=== PATIENT | female | born 1990 | race Caucasian/White ===

== ENCOUNTER 2016-09-14 22:18 | Emergency (ER) | payer SELFPAY ==
[~2016-09-14] VITALS: Wt 57.5 kg
[~2016-09-14 22:18] MED LIST: [UNRECOGNIZED DRUG - OTHER]
[2016-09-15] MEDS ORDERED: ONDANSETRON (ODT) 4 MG TAB ODT STA (02:19)
--- NOTE | 2016-09-15 02:33 | ERD ---
ER Documentation Chief Complaint Date/Time DATE: 09/15/16 TIME: 02:30 Chief Complaint Headache with N/V and feeling weak HPI 26-year-old female presents to emergency department for complaints of headache nausea vomiting started 3 days ago. Patient is complaint of headache, throbbing pain. 6/10 scale, comminuted with nausea and vomiting. Patient is complaining of light sensitivity is sent. Patient denies any head injury. Patient denies any abdominal pain, denies any blood in the vomit. Patient denies any diarrhea. Patient denies any fever or chills. ROS All systems reviewed and are negative except as per history of present illness. Medications Home Meds Reported Medications [advil,tylenol] No Conflict Check 06/01/11 Allergies Allergies: Coded Allergies: No Known Allergy (Unverified , 09/14/16) PMhx/Soc Medical and Surgical Hx: pt denies Medical Hx, pt denies Surgical Hx History of Surgery: No Anesthesia Reaction: No Hx Neurological Disorder: No Hx Respiratory Disorders: No Hx Cardiac Disorders: No Hx Psychiatric Problems: No Hx Miscellaneous Medical Probl: No Hx Alcohol Use: No Hx Substance Use: No Hx Tobacco Use: No Smoking Status: Never smoker FmHx Family History: No coronary disease, No diabetes, No other Physical Exam Vitals Vital Signs Date Time Temp Pulse Resp B/P Pulse Ox O2 Delivery O2 Flow Rate FiO2 09/14/16 22:27 97.5 72 20 121/59 100 Physical Exam GENERAL: The patient is well developed and appropriate for usual state of health, in no apparent distress. CHEST: Clear to auscultation bilaterally. There are no rales, wheezes or rhonchi. HEART: Regular rate and rhythm. No murmurs, clicks, rubs or gallops. No S3 or S4. ABDOMEN: Soft, nontender and nondistended. Good bowel sounds. No rebound or guarding. No gross peritonitis. No gross organomegaly or masses. No Engel sign or McBurney point tenderness. BACK: No midline or flank tenderness. EXTREMITIES: Equal pulses bilaterally. There is no peripheral clubbing, cyanosis or edema. No focal swelling or erythema. Full range of motion. Grossly neurovascularly intact. NEURO: Alert and oriented. Cranial nerves 2-12 intact. Motor strength in all 4 extremities with 5/5 strength. Sensation grossly intact. Normal speech and gait. Negative Romberg sign. Negative pronator drift SKIN: There is no apparent rash or petechia. The skin is warm and dry. HEMATOLOGIC AND LYMPHATIC: There is no evidence of excessive bruising or lymphedema. No gross cervical, axillary, or inguinal lymphadenopathy. Results 24 hrs Current Medications Medications (Trade) Dose Ordered Sig/Alma Route PRN Reason Start Time Stop Time Status Last Admin Dose Admin Ondansetron HCl (Zofran Odt) 4 mg ONCE STAT ODT 09/15/16 02:19 09/15/16 02:21 DC Patient was given Zofran here in the emergency department. After treatment, patient was able to tolerate po fluids here in the emergency department without any vomiting. There is no signs and symptoms of dehydration. PROCEDURE: CT BRAIN WITHOUT CONTRAST CLINICAL INDICATION: 26-year-old female with headaches. TECHNIQUE: The study was performed utilizing a [employer] VCT 64-slice CT scanner. Direct axial sections were obtained from the foramen magnum to the vertex without the use of intravenous contrast material. Sagittal and coronal reformations were obtained. One or more the following dose reduction techniques were utilized: automated exposure control, adjustment of the mA and/or kV according to patient's size or use of iterative reconstruction technique. The images were viewed on a PACS workstation. CTD/vol = 44.5 mGy; Total Exam DLP = 120.2 mGy-cm. COMPARISON: The patient's prior CT scan of the brain from June 01, 2011 is not online for direct comparison however the dictation was utilized. FINDINGS: The ventricles have a normal size, shape and position. There is no evidence for mass effect or midline shift. There is a left parietal parasagittal ovoid calcific density measuring approximately 2 x 2 mm on axial image 2-16 which was described previously and most likely is from prior cysticercosis infection. There is no evidence for acute intra or extra-axial blood. The bony calvarium is intact. The partially visualized paranasal sinuses and mastoid air cells are without significant abnormal soft tissue. IMPRESSION: Small left parietal 2 mm parasagittal calcific density most likely from prior cysticercosis infection previously described on the patient's prior study from June 01, 2011. .Tony Tirado MD, Date Time Electronically viewed and signed by .Tony Tirado MD, on 09/15/2016 02:55 .M/ CC: ANGEL CA NP Procedures/MDM Medical Decision Making: Patient symptoms are consistent with migraine headache , possible tension headache. There is low suspicion for neurological emergencies at this time since patients neurologic exam is normal. Patient did not have any altered level consciousness, vomiting, changes in balance or memory and did not have any head injury. Patients CT scan of the head does not show any neurological emergencies at this time. Rx: Fioricet with codeine, Zofran Dispostion: Home. Stable Departure Diagnosis: Primary Impression: Headache Headache type: unspecified Headache chronicity pattern: acute headache Intractability: not intractable Qualified Code: R51 - Acute nonintractable headache, unspecified headache type Condition: Stable Patient Instructions: Self-Care for Headaches ANGEL CA NP Sep 15, 2016 02:33
--- NOTE | 2016-09-15 02:56 | RADRPT ---
PROCEDURE: CT BRAIN WITHOUT CONTRAST CLINICAL INDICATION: 26-year-old female with headaches. TECHNIQUE: The study was performed utilizing a [employer] VCT 64-slice CT scanner. Direct axia l sections were obtained from the foramen magnum to the vertex without the use of intravenous contra st material. Sagittal and coronal reformations were obtained. One or more the following dose reduct ion techniques were utilized: automated exposure control, adjustment of the mA and/or kV according t o patient's size or use of iterative reconstruction technique. The images were viewed on a PACS Workface. CTD/vol = 44.5 mGy; Total Exam DLP = 120.2 mGy-cm. COMPARISON: The patient's prior CT scan of the brain from June 01, 2011 is not online for direct c omparison however the dictation was utilized. FINDINGS: The ventricles have a normal size, shape and position. There is no evidence for mass effect or midl ine shift. There is a left parietal parasagittal ovoid calcific density measuring approximately 2 x 2 mm on axial image 2-16 which was described previously and most likely is from prior cysticercosis infection. There is no evidence for acute intra or extra-axial blood. The bony calvarium is intact . The partially visualized paranasal sinuses and mastoid air cells are without significant abnormal soft tissue. IMPRESSION: Small left parietal 2 mm parasagittal calcific density most likely from prior cysticercosis infectio n previously described on the patient's prior study from June 01, 2011. .Tony Tirado MD, MD Date Time Electronically viewed and signed by .Tony Tirado MD, on 09/15/2016 02:55 .Farhad/
[2016-09-15] MEDS ORDERED: BUTA1CAP39 PO (03:07)
[2016-09-15] MEDS ORDERED: ONDA4TAB14 PO (03:07)
== END 2016-09-15 03:31 | disposition home or self-care (01) ==
LOC: FTE 22:18
DX: R51 Headache (principal); R11.2 Nausea with vomiting, unspecified
CPT/HCPCS: 70450

== ENCOUNTER 2017-02-15 19:34 | Emergency (ER) | payer MEDICAID, OTHER ==
[~2017-02-15] VITALS: Ht 157.5 cm; Wt 57.2 kg
[~2017-02-15 19:34] MED LIST changes: +BUTA1CAP39 PO; +ONDA4TAB14 PO
[2017-02-15 19:37] VITALS: Ht 157.5 cm; Wt 57.2 kg
[2017-02-15] MEDS ORDERED: KETOROLAC 60 MG INJ IM STA (20:53)
[2017-02-15] MEDS ORDERED: HYDR-906 PO (21:07)
[2017-02-15] MEDS ORDERED: CYCL-319 PO (21:07)
[2017-02-15] MEDS ORDERED: IBUP-1542 PO (21:07)
--- NOTE | 2017-02-15 21:13 | ERD ---
ER Documentation Chief Complaint Chief Complaint right arm pain x 4 days, denies injury HPI 26-year-old female presents here to emergency department for complaints of right shoulder pain radiating to the right arm started 4 days ago. Patient was lifting weights and working out, may have started afterwards. Patient denies any direct trauma in affected area. Patient described the pain as throbbing pain, succession scale, as was upon movement. Patient did not take any medications to help with symptoms. Patient denies any deformity. Patient denies any numbness or tingling. Patient did not take any medication for pain. ROS All systems reviewed and are negative except as per history of present illness. Medications Home Meds Active Scripts Cyclobenzaprine Hcl* (Cyclobenzaprine Hcl*) 10 Mg Tablet, 10 MG PO TID, #15 TAB Prov:ANGEL CA NP 02/15/17 Hydrocodone/Acetaminophen ([place] 5-325 Tablet) 1 Each Tablet, 1 TAB PO Q6H Y for SEVERE PAIN LEVEL 7-10, #20 TAB Prov:ANGEL CA NP 02/15/17 Ibuprofen* (Motrin*) 600 Mg Tab, 600 MG PO Q6H Y for PAIN AND OR ELEVATED TEMP, #30 TAB Prov:ANGEL CA NP 02/15/17 Ondansetron (Ondansetron Odt) 4 Mg Tab.rapdis, 4 MG PO Q8 Y for NAUSEA AND/OR VOMITING, #30 TAB Prov:ANGEL CA NP 09/15/16 Kkqobqdizlzqz-Ceinxyatow-Qyocwuel-Codeine* (Fioricet w/ Codeine*) [id number] 30MG Capsule, 1 CAP PO Q6H Y for PAIN LEVEL 1-5, #20 CAP Prov:ANGEL CA NP 09/15/16 Reported Medications [advil,tylenol] No Conflict Check 06/01/11 Allergies Allergies: Coded Allergies: No Known Allergy (Unverified , 09/14/16) PMhx/Soc Medical and Surgical Hx: pt denies Medical Hx, pt denies Surgical Hx History of Surgery: No Anesthesia Reaction: No Hx Neurological Disorder: No Hx Respiratory Disorders: No Hx Cardiac Disorders: No Hx Psychiatric Problems: No Hx Miscellaneous Medical Probl: No Hx Alcohol Use: No Hx Substance Use: No Hx Tobacco Use: No FmHx Family History: No coronary disease, No diabetes, No other Physical Exam Vitals Vital Signs Date Time Temp Pulse Resp B/P Pulse Ox O2 Delivery O2 Flow Rate FiO2 02/15/17 19:37 98.7 71 20 106/63 99 Physical Exam GENERAL: The patient is well developed and appropriate for usual state of health, in no apparent distress. CHEST: Clear to auscultation bilaterally. There are no rales, wheezes or rhonchi. HEART: Regular rate and rhythm. No murmurs, clicks, rubs or gallops. No S3 or S4. ABDOMEN: Soft, nontender and nondistended. Good bowel sounds. No rebound or guarding. No gross peritonitis. No gross organomegaly or masses. No Engel sign or McBurney point tenderness. BACK: No midline or flank tenderness. EXTREMITIES: Able to do full range of motion of the right shoulder without any restriction, no deformity noted, no redness or swelling noted. Able to do full range of motion equal pulses bilaterally. There is no peripheral clubbing, cyanosis or edema. No focal swelling or erythema. Full range of motion. Grossly neurovascularly intact. NEURO: Alert and oriented. Cranial nerves 2-12 intact. Motor strength in all 4 extremities with 5/5 strength. Sensation grossly intact. Normal speech and gait. SKIN: There is no apparent rash or petechia. The skin is warm and dry. HEMATOLOGIC AND LYMPHATIC: There is no evidence of excessive bruising or lymphedema. No gross cervical, axillary, or inguinal lymphadenopathy. Results 24 hrs Current Medications Medications (Trade) Dose Ordered Sig/Alma Route PRN Reason Start Time Stop Time Status Last Admin Dose Admin Ketorolac Tromethamine (Toradol) 60 mg ONCE STAT IM 02/15/17 20:53 02/15/17 20:54 DC Patient was given medication for pain here in emergency department, after treatment, patient verbalized feeling much better. Patient's pain is improved. Procedures/MDM Medical Decision Making: Patient's pain is most likely consistent with a right shoulder strain. There is no suspicion for neurovascular compromise. Patient has intact sensation and circulation of the affected extremity. There is low suspicion for septic arthritis. Patient does not have any fever. Radiology exams of the affected area does not show any fracture or dislocation. Disposition: Home. Patient is given prescription for ibuprofen for pain. Patient was advised to elevate the affected area and apply ice on affected area. Patient was advised that if symptoms are worse, numbness, tingling, high fever, unable to move joint, worsening symptoms, to return to emergency department immediately. Otherwise, patient is advised to follow up with the primary care doctor in 5-7 days for reevaluation of symptoms. Disclaimer: Inadvertent spelling and grammatical errors are likely due to EHR/ dictation software use and do not reflect on the overall quality of patient care. Also, please note that the electronic time recorded on this note does not necessarily reflect the actual time of the patient encounter. Departure Diagnosis: Primary Impression: Shoulder strain Encounter type: initial encounter Laterality: right Qualified Code: S46.911A - Strain of right shoulder, initial encounter Condition: Stable Patient Instructions: Shoulder Sprain ANGEL CA NP Feb 15, 2017 21:13
[2017-02-15 22:02] VITALS: PULSE 88; RESP 20; TEMP 98.2
== END 2017-02-15 21:20 | disposition home or self-care (01) ==
LOC: FTE 19:34
DX: S46.911A Strain of unspecified muscle, fascia and tendon at shoulder and upper arm level, right arm, initial encounter (principal); X50.0XXA Overexertion from strenuous movement or load, initial encounter; Y92.89 Other specified places as the place of occurrence of the external cause
CPT/HCPCS: J1885; Z7502; 99284

== ENCOUNTER 2017-12-04 18:50 | Emergency (ER) | END 2017-12-04 22:46 | disposition home or self-care (01) ==

== ENCOUNTER 2017-12-18 20:29 | Emergency (ER) | END 2017-12-19 01:11 | disposition home or self-care (01) ==

== ENCOUNTER 2018-04-24 18:27 | Emergency (ER) | payer MEDICAID, OTHER ==
[~2018-04-24] VITALS: Ht 160 cm; Wt 58.0 kg
[~2018-04-24 18:27] MED LIST changes: +CYCL10TA7 PO; +FIORICET PO; +HYDR-4011 PO; +IBUP-1542 PO; +IBUP-1561 PO; +METO10TA92 PO; +NAPR-985 PO
[2018-04-24 18:59] VITALS: Ht 160 cm; Wt 58.0 kg
--- NOTE | 2018-04-24 22:13 | ERD ---
ER Documentation Chief Complaint Chief Complaint JARVIS 12/04 X ONE MONTH HPI 27-year-old female, with history of migraines presents the emergency department, complaining of 1 month with persistent headache. Global, tight, /10. She denies blurred vision, no nausea, no vomiting, no distal weakness, numbness or tingling. Medications taking: Ibuprofen without improvement of the symptoms. ROS All systems reviewed and are negative except as per history of present illness. Medications Home Meds Active Scripts Metoclopramide* (Reglan*) 10 Mg Tablet, 10 MG PO Q6 PRN for NAUSEA AND/OR VOMITING, #10 TAB Prov:EVERARDO CARRASCO MD 04/24/18 Acetamin/Butalbital/Caffeine* (Fioricet*) [id number] Tab, 1 TAB PO Q6H PRN for PAIN, #30 TAB Prov:EVERARDO CARRASCO MD 04/24/18 Ibuprofen* (Motrin*) 400 Mg Tab, 400 MG PO Q6, #30 TAB Prov:ALESHA ACEVEDO PA-C 12/19/17 Metoclopramide* (Reglan*) 10 Mg Tablet, 10 MG PO Q6 PRN for NAUSEA AND/OR VOMITING, #30 TAB Prov:JODY AGUILAR 12/04/17 Acetamin/Butalbital/Caffeine* (Fioricet*) [id number] Tab, 1 TAB PO Q6H PRN for SEVERE PAIN LEVEL 7-10, #30 TAB Prov:JODY AGUILAR 12/04/17 Naproxen* (Naprosyn*) 500 Mg Tablet, 500 MG PO BID PRN for PAIN AND/OR INFLAMMATION, #30 TAB Prov:JODY AGUILAR 12/04/17 Cyclobenzaprine Hcl* (Cyclobenzaprine Hcl*) 10 Mg Tablet, 10 MG PO TID, #15 TAB Prov:ANGEL CA NP 02/15/17 Hydrocodone/Acetaminophen ([place] 5-325 Tablet) 1 Each Tablet, 1 TAB PO Q6H PRN for SEVERE PAIN LEVEL 7-10, #20 TAB Prov:ANGEL CA NP 02/15/17 Ibuprofen* (Motrin*) 600 Mg Tab, 600 MG PO Q6H PRN for PAIN AND OR ELEVATED T EMP, #30 TAB Prov:ANGEL CA NP 02/15/17 Ondansetron (Ondansetron Odt) 4 Mg Tab.rapdis, 4 MG PO Q8 PRN for NAUSEA AND/OR VOMITING, #30 TAB Prov:ANGEL CA INSURANCE PROCESSOR 09/15/16 Uqavwdzeelxpd-Wmxtevhugj-Lfedbkud-Codeine* (Fioricet w/ Codeine*) [id number] Capsule, 1 CAP PO Q6H PRN for PAIN LEVEL 1-5, #20 CAP Prov:ANGEL CA INSURANCE PROCESSOR 09/15/16 Reported Medications [advil,tylenol] No Conflict Check 06/01/11 Allergies Allergies: Coded Allergies: No Known Allergy (Unverified , 12/04/17) PMhx/Soc History of Surgery: No Anesthesia Reaction: No Hx Neurological Disorder: No Hx Respiratory Disorders: No Hx Cardiac Disorders: No Hx Psychiatric Problems: Yes (anxiety) Hx Miscellaneous Medical Probl: No Hx Alcohol Use: No Hx Substance Use: No Hx Tobacco Use: No Smoking Status: Never smoker FmHx Family History: diabetes, coronary disease Physical Exam Vitals Vital Signs Date Temp Pulse Resp B/P (MAP) Pulse Ox O2 O2 Flow FiO2 Time Delivery Rate 04/24/18 88 16 113/58 99 18:59 (76) Physical Exam Const: No acute distress Head: Atraumatic Eyes: Normal Conjunctiva ENT: Normal External Ears, Nose and Mouth. Neck: Full range of motion. No meningismus. Resp: Clear to auscultation bilaterally Cardio: Regular rate and rhythm, no murmurs Abd: Soft, non tender, non distended. Normal bowel sounds Skin: No petechiae or rashes Back: No midline or flank tenderness Ext: No cyanosis, or edema Neur: Awake and alert Psych: Normal Mood and Affect Results 24 hrs Current Medications Medications Dose Sig/Alma Start Time Status Last (Trade) Ordered Route PRN Stop Time Admin Dose Reason Admin 1 tab ONCE ONCE 04/24/18 DC Acetaminophen PO 22:30 / 04/24/18 22:31 Butalbital/ Caffeine (Fioricet) Ondansetron 4 mg ONCE STAT 1/29/19 DC HCl (Zofran ODT 22:27 Odt) 04/24/18 22:31 Procedures/MDM Vital signs stable, Physical exam unremarkable, neurovascular exam intact. Differential diagnosis include but not limited to: Classical migraine, sinusitis, visual corrective problems, side effects of medications, dehydration, electrolyte imbalance, endocrine/autoimmune medical condition, stress, anxiety, tension headache. Low suspicion for meningitis, [employer] tumor, cerebrovascular event. Physical examination and clinical presentation consistent most likely with migraine headache. During the ED course the patient remained stable, no new complaints. Results and clinical impression discussed with patient who agrees with management. The patient is stable to be treated outpatient and will be discharged home, some side effects of prescribed medications (headache, rash, nausea, vomiting, diarrhea, drowsiness, habituation, bleeding, hypertension, interactions with other medications) were reviewed. Follow up with the primary care provider in the next 48h has been recommended. If symptoms persist, worsen or new symptoms develop, then patient should return to the ED immediately. Instructions explained and given directly by me to the patient with acknowledgment and demonstrated understanding. Disclaimer: Inadvertent spelling and grammatical errors are likely due to EHR/dictation software use and do not reflect on the overall quality of patient care. Also, please note that the electronic time recorded on this note does not necessarily reflect the actual time of the patient encounter. Departure Diagnosis: Primary Impression: Migraine Condition: Stable Additional Instructions: Thank you very much for allowing us to participate in your care. Your health and safety is our top priority at [facility]. Call your primary care doctor TOMORROW for an appointment during the next 2-4 days and bring all the information and medications prescribed. Have prescriptions filled and follow precisely the directions on the label. If the symptoms get worse and your provider is unavailable, return to the Emergency Department immediately. EVERARDO CARRASCO MD Apr 24, 2018 22:13
[2018-04-24] MEDS ORDERED: ONDANSETRON (ODT) 4 MG TAB ODT STA (22:27)
[2018-04-24] MEDS ORDERED: ACET/BUTAL/CAFF TAB PO ONE (22:30)
[2018-04-24] MEDS ORDERED: METO10TA92 PO (22:35)
[2018-04-24] MEDS ORDERED: FIORICET PO (22:35)
[2018-04-24 22:57] VITALS: BP 112/70; PULSE 80; RESP 18
== END 2018-04-24 22:59 | disposition home or self-care (01) ==
LOC: FTE 18:27
DX: G43.909 Migraine, unspecified, not intractable, without status migrainosus (principal)
CPT/HCPCS: Z7502; Z7610; 99283

== ENCOUNTER 2018-10-27 20:41 | Emergency (ER) | payer SELFPAY ==
[~2018-10-27] VITALS: Ht 160 cm; Wt 59.4 kg
[~2018-10-27 20:41] MED LIST changes: +BUTA1CAP38 PO; +MELO7.5T38 PO
[2018-10-27 20:42] VITALS: Ht 160 cm; Wt 59.4 kg
[2018-10-27] MEDS ORDERED: KETOROLAC 60 MG INJ IM STA (21:52)
--- NOTE | 2018-10-27 21:59 | ERD ---
ER Documentation Chief Complaint Chief Complaint JARVIS X 2 WEEKS. HPI Patient is a 28-year-old female with past medical history of anxiety and migraine presenting to the clinic for migrainous headache X 2 weeks. Patient reports headache throughout the entirety of her head that comes and goes. Rates her pain 8.5 out of 10 mid to taking OTC ibuprofen without resolution of symptoms. Patient admits to mild aura and wanting to go to a dark room. Patient denies nausea, emesis, dizziness. Patient reports that her headache affects her daily life activities but is able to go to work. Patient reports [place] moves her migraines in the past. ROS All systems reviewed and are negative except as per history of present illness. Medications Home Meds Active Scripts Metoclopramide* (Reglan*) 10 Mg Tablet, 10 MG PO Q6 PRN for NAUSEA AND/OR VOMITING, #10 TAB Prov:EVERARDO CARRASCO MD 04/24/18 Acetamin/Butalbital/Caffeine* (Fioricet*) [id number] Tab, 1 TAB PO Q6H PRN for PAIN, #30 TAB Prov:EEVRARDO CARRASCO MD 04/24/18 Ibuprofen* (Motrin*) 400 Mg Tab, 400 MG PO Q6, #30 TAB Prov:ALESHA ACEVEDO PA-C 12/19/17 Metoclopramide* (Reglan*) 10 Mg Tablet, 10 MG PO Q6 PRN for NAUSEA AND/OR VOMITING, #30 TAB Prov:JODY AGUILAR 12/04/17 Acetamin/Butalbital/Caffeine* (Fioricet*) [id number] Tab, 1 TAB PO Q6H PRN for SEVERE PAIN LEVEL 7-10, #30 TAB Prov:JODY AGUILAR 12/04/17 Naproxen* (Naprosyn*) 500 Mg Tablet, 500 MG PO BID PRN for PAIN AND/OR INFLAMMATION, #30 TAB Prov:JODY AGUILAR 12/04/17 Cyclobenzaprine Hcl* (Cyclobenzaprine Hcl*) 10 Mg Tablet, 10 MG PO TID, #15 TAB Prov:ANGEL CA NP 02/15/17 Hydrocodone/Acetaminophen ([place] 5-325 Tablet) 1 Each Tablet, 1 TAB PO Q6H PRN for SEVERE PAIN LEVEL 7-10, #20 TAB Prov:ANGEL CA NP 02/15/17 Ibuprofen* (Motrin*) 600 Mg Tab, 600 MG PO Q6H PRN for PAIN AND OR ELEVATED TEMP , #30 TAB Prov:ANGEL CA TIMBER KILLER 02/15/17 Ondansetron (Ondansetron Odt) 4 Mg Tab.rapdis, 4 MG PO Q8 PRN for NAUSEA AND/OR VOMITING, #30 TAB Prov:ANGEL CA TIMBER KILLER 09/15/16 Bvdtrrahguvlv-Dypkiqopvk-Nahtxwux-Codeine* (Fioricet w/ Codeine*) [id number] Capsule, 1 CAP PO Q6H PRN for PAIN LEVEL 1-5, #20 CAP Prov:ANGEL CA TIMBER KILLER 09/15/16 Reported Medications [advil,tylenol] No Conflict Check 06/01/11 Allergies Allergies: Coded Allergies: No Known Allergy (Unverified , 12/04/17) PMhx/Soc Medical and Surgical Hx: pt denies Surgical Hx History of Surgery: No Anesthesia Reaction: No Hx Neurological Disorder: No Hx Respiratory Disorders: No Hx Cardiac Disorders: No Hx Psychiatric Problems: Yes (anxiety) Hx Miscellaneous Medical Probl: No Hx Alcohol Use: No Hx Substance Use: No Hx Tobacco Use: No Smoking Status: Never smoker FmHx Family History: No diabetes, No coronary disease, No other Physical Exam Vitals Vital Signs Date Temp Pulse Resp B/P (MAP) Pulse Ox O2 O2 Flow FiO2 Time Delivery Rate 10/27/18 98.6 75 20 107/71 100 20:42 (83) Physical Exam Const: No acute distress. Patient sitting comfortably on exam bed in any distress. Head: Atraumatic. Negative sinus tenderness. Eyes: Normal Conjunctiva. PERRLA. No nystagmus. Resp: Clear to auscultation bilaterally Cardio: Regular rate and rhythm, no murmurs Neur: Awake and alert. CNII-XII intact. 5 out of 5 upper and lower extremity strength. Psych: Normal Mood and Affect Procedures/MDM Patient was seen and evaluated for possible migrainous headache without complications. Patient shows no signs of neurological deficits. I have low suspicion for hemorrhage. Toradol 60 mg administered in ED. Patient was advised the provider will not give [place]. She is stable ready for discharge. Follow-up with PCP. Patient will be discharged with meloxicam. Departure Diagnosis: Primary Impression: Migraine Migraine type: unspecified Status migrainosus presence: without status migrainosus Intractability: intractable Qualified Codes: G43.919 - Migraine, unspecified, intractable, without status migrainosus Condition: Stable Patient Instructions: Headache, Migraine (Classical) Referrals: [facility] Additional Instructions: Patient advised to return to the ED immediately for new or worsening symptoms. Patient advised to follow up with primary care provider in the next 24-48 hours. Patient verbalized understanding and agrees with treatment plan and course of action. If patient has no primary care they may follow up with [facility] [address] [place] [id number] or [facility] [address] [place] [address] or [facility] [address] [place] [address] ANTHONY BALLESTEROS PA-C Oct 27, 2018 21:59
[2018-10-27] MEDS ORDERED: MELOXICAM 15 MG TAB PO ONE (23:00)
[2018-10-27 23:24] VITALS: BP 108/60; PULSE 58; RESP 18
== END 2018-10-27 23:25 | disposition home or self-care (01) ==
LOC: FTE 20:41
DX: G43.919 Migraine, unspecified, intractable, without status migrainosus (principal)
CPT/HCPCS: 81025; 99283; J1885

== ENCOUNTER 2018-11-03 22:15 | Emergency (ER) | payer SELFPAY ==
[~2018-11-03] VITALS: Ht 160 cm; Wt 59.9 kg
[2018-11-03 22:29] VITALS: Ht 160 cm; Wt 59.9 kg
[2018-11-03] MEDS ORDERED: KETOROLAC 30 MG INJ IM STA (23:23)
--- NOTE | 2018-11-03 23:33 | ERD ---
ER Documentation Chief Complaint Chief Complaint headache x 3-4 wks; hx of migraine HPI Patient is a 28-year-old female, past medical history of migraine headaches in the ER for concerns of a intermittent headaches for the last 3 to 4 weeks. Patient states she was seen here 1 week ago. She states she was given pre scription for meloxicam however it is not helping with her headaches. Patient states her headache comes and goes. Headache is not consistent. Patient denies any sudden worsening pain. Patient reports associated nausea however denies any vomiting, acute confusion, excessive sleepiness, photophobia, phonophobia, neck pain, neck stiffness, fevers or chills. Patient states current headache feels the same as previous headaches. Patient states her last menstrual period was 2 weeks ago. ROS All systems reviewed and are negative except as per history of present illness. Medications Home Meds Active Scripts Djphhwwhwa-Dcspyudelztap-Myywjdvz* (Fioricet*) 50-300-40 Mg Capsule, 1 CAP PO Q6H PRN for head, #10 CAP Prov:EZEKIEL ZIMMERMAN PA-C 11/03/18 Meloxicam* (Meloxicam*) 7.5 Mg Tablet, 7.5 MG PO DAILY, #30 TAB Prov:ANTHONY BALLESTEROS PA-C 10/27/18 Metoclopramide* (Reglan*) 10 Mg Tablet, 10 MG PO Q6 PRN for NAUSEA AND/OR VOMITI NG, #10 TAB Prov:EVERARDO CARRASCO MD 04/24/18 Acetamin/Butalbital/Caffeine* (Fioricet*) [id number] Tab, 1 TAB PO Q6H PRN for PAIN, #30 TAB Prov:EVERARDO CARRASCO MD 04/24/18 Ibuprofen* (Motrin*) 400 Mg Tab, 400 MG PO Q6, #30 TAB Prov:ALESHA ACEVEDO PA-C 12/19/17 Metoclopramide* (Reglan*) 10 Mg Tablet, 10 MG PO Q6 PRN for NAUSEA AND/OR VOMITING, #30 TAB Prov:JODY AGUILAR 12/04/17 Acetamin/Butalbital/Caffeine* (Fioricet*) [id number] Tab, 1 TAB PO Q6H PRN for SEVERE PAIN LEVEL 7-10, #30 TAB Prov:JODY AGUILAR 12/04/17 Naproxen* (Naprosyn*) 500 Mg Tablet, 500 MG PO BID PRN for PAIN AND/OR INFLAMMATION, #30 TAB Prov:JODY AGUILAR 12/04/17 Cyclobenzaprine Hcl* (Cyclobenzaprine Hcl*) 10 Mg Tablet, 10 MG PO TID, #15 TAB Prov:ANGEL CA NP 02/15/17 Hydrocodone/Acetaminophen ([place] 5-325 Tablet) 1 Each Tablet, 1 TAB PO Q6H PRN for SEVERE PAIN LEVEL 7-10, #20 TAB Prov:ANGEL CA NP 02/15/17 Ibuprofen* (Motrin*) 600 Mg Tab, 600 MG PO Q6H PRN for PAIN AND OR ELEVATED TEMP, #30 TAB Prov:ANGEL CA NP 02/15/17 Ondansetron (Ondansetron Odt) 4 Mg Tab.rapdis, 4 MG PO Q8 PRN for NAUSEA AND/OR VOMITING, #30 TAB Prov:ANGEL CA NETWORK CONSULTANT 09/15/16 Ozdazxbtnqrnx-Jtdtrpsdfk-Jdpomrpf-Codeine* (Fioricet w/ Codeine*) [id number] Capsule, 1 CAP PO Q6H PRN for PAIN LEVEL 1-5, #20 CAP Prov:ANGEL CA NETWORK CONSULTANT 09/15/16 Reported Medications [advil,tylenol] No Conflict Check 06/01/11 Allergies Allergies: Coded Allergies: No Known Allergy (Unverified , 12/04/17) PMhx/Soc Medical and Surgical Hx: pt denies Medical Hx, pt denies Surgical Hx History of Surgery: No Anesthesia Reaction: No Hx Neurological Disorder: No Hx Respiratory Disorders: No Hx Cardiac Disorders: No Hx Psychiatric Problems: No Hx Miscellaneous Medical Probl: No Hx Alcohol Use: No Hx Substance Use: No Hx Tobacco Use: No Smoking Status: Never smoker FmHx Family History: No diabetes Physical Exam Vitals Vital Signs Date Temp Pulse Resp B/P (MAP) Pulse Ox O2 O2 Flow FiO2 Time Delivery Rate 11/03/18 98.9 57 16 112/54 99 22:29 (73) Physical Exam GENERAL: Well-developed, well-nourished female. Appears in no acute distress. HEAD: Normocephalic, atraumatic. No deformities or ecchymosis. EYE: Pupils equal, round, and reactive to light. EOMs intact. No conjunctival erythema. No eye discharge. NECK: Supple. No meningismus. Normal ROM of the neck. LUNG: Clear to auscultation bilaterally. No rhonchi, wheezing, rales or coarse breath sounds. HEART: Regular rate and rhythm. No murmurs, rubs or gallops. EXTREMITIES: Equal pulses bilaterally. No peripheral clubbing, cyanosis or edema. No unilateral leg swelling. NEUROLOGIC: Alert and oriented x3, cooperative. Mood and affect appropriate to situation. Cranial nerves II through XII are grossly intact. Normal speech. Motor exam: 5/5 strength in upper and lower extremities. Sensory exam: Sensation intact to light touch on all four extremities. Cerebellar function exam: Rapid alternating movements intact. No dysmetria on oktmnx-fz-gqhb and snup-ut-tszk test. Steady gait. No pronator drift. Equal die cleaner strength bilaterally. SKIN: Normal color. Warm and dry. No rashes or lesions. Results 24 hrs Laboratory Tests Test 11/03/18 23:37 11/03/18 23:39 POC Beta HCG, Qualitative NEGATIVE Bedside Urine pH (LAB) 6.0 Bedside Urine Protein (LAB) Negative Bedside Urine Glucose (UA) Negative Bedside Urine Ketones (LAB) Negative Bedside Urine Blood Trace-intact Bedside Urine Nitrite (LAB) Negative Bedside Urine Leukocyte Esterase (L Negative Current Medications Medications Dose Sig/[place] Start Time Status Last (Trade) Ordered Route PRN Stop Time Admin Dose Reason Admin Ketorolac 30 mg ONCE STAT 11/03/18 DC Tromethamine IM 23:23 (Toradol) 11/03/18 23:24 Procedures/MDM MEDICAL DECISION MAKING: This is a 28-year-old female presents ER for concerns of intermittent headaches for the last 3 to 4 weeks. Patient has a history of migraine headaches. Vital signs were reviewed. Patient was afebrile. Patient is not hypoxic. Patient stated that current headache was similar to headaches in the past. Patient denied any fevers, neck stiffness, jaw claudication, visual changes or LOC. Full neurological exam was normal. Urine test was negative. UA was negative. Patient was given Toradol for pain. Patient reported improvement pain prior to discharge. Low suspicion for intracranial hemorrhage, CVA, TIA, meningitis, encephalitis, CO poisoning, temporal arteritis, benign intracranial hypertension, intracranial mass, glaucoma, preeclampsia, sinusitis. Patient was nontoxic, ays-hbk-fqtayairh prior to discharge. PRESCRIPTIONS: Fioricet DISCHARGE: At this time, patient is stable for discharge and outpatient management. I have encouraged the patient to hydrate well. I have instructed the patient to follow- up with his/her primary care physician in 1-2 days. If symptoms persist, patient may need to see a specialist for further examinations and testing. I have instructed the patient to promptly return to the ER at any time for any new or worsening symptoms including increased increased pain, fever, nausea, vomiting, numbness, neck stiffness, visual changes, weakness or LOC. The patient and/or family expressed understanding of and agreement with this plan. All questions were answered. Home care instructions were provided. Disclaimer: Inadvertent spelling and grammatical errors are likely due to EHR/dictation software use and do not reflect on the overall quality of patient care. Also, please note that the electronic time recorded on this note does not necessarily reflect the actual time of the patient encounter. Departure Diagnosis: Primary Impression: Headache Headache type: unspecified Headache chronicity pattern: unspecified pattern Intractability: not intractable Qualified Codes: R51 - Headache Condition: Fair Patient Instructions: Self-Care for Headaches Referrals: COMMUNITY CLINICS YOU HAVE RECEIVED A MEDICAL SCREENING EXAM AND THE RESULTS INDICATE THAT YOU DO NOT HAVE A CONDITION THAT REQUIRES URGENT TREATMENT IN THE EMERGENCY DEPARTMENT. FURTHER EVALUATION AND TREATMENT OF YOUR CONDITION CAN WAIT UNTIL YOU ARE SEEN IN YOUR DOCTORS OFFICE WITHIN THE NEXT 1-2 DAYS. IT IS YOUR RESPONSIBILITY TO MAKE AN APPOINTMENT FOR FOLOW-UP CARE. IF YOU HAVE A PRIMARY DOCTOR --you should call your primary doctor and schedule an appointment IF YOU DO NOT HAVE A PRIMARY DOCTOR YOU CAN CALL OUR PHYSICIAN REFERRAL HOTLINE AT IF YOU CAN NOT AFFORD TO SEE A PHYSICIAN YOU CAN CHOSE FROM THE FOLLOWING [facility] CLINICS [facility] [address] [facility] [address] [facility] [address] [facility] [address] [facility]. [facility] [address] [facility]. [facility] [address] [facility]. [facility] YOU HAVE RECEIVED A MEDICAL SCREENING EXAM AND THE RESULTS INDICATE THAT YOU DO NOT HAVE A CONDITION THAT REQUIRES URGENT TREATMENT IN THE EMERGENCY DEPARTMENT. FURTHER EVALUATION AND TREATMENT OF YOUR CONDITION CAN WAIT UNTIL YOU ARE SEEN IN YOUR DOCTORS OFFICE WITHIN THE NEXT 1-2 DAYS. IT IS YOUR RESPONSIBILITY TO MAKE AN APPOINTMENT FOR FOLOW-UP CARE. IF YOU HAVE A PRIMARY DOCTOR --you should call your primary doctor and schedule and appointment IF YOU DO NOT HAVE A PRIMARY DOCTOR YOU CAN CALL OUR PHYSICIAN REFERRAL HOTLINE AT . IF YOU CAN NOT AFFORD TO SEE A PHYSICIAN YOU CAN CHOSE FROM THE FOLLOWING [facility] INSTITUTIONS: [facility] [address] [place] [address] [facility] [address] [place], [place] [id number] [place] [address] [address] [place] [address] Additional Instructions: Call your primary care doctor TOMORROW for an appointment during the next 1-2 days.See the doctor sooner or return here if your condition worsens before your appointment time. EZEKIEL ZIMMERMAN PA-C Nov 03, 2018 23:33
[2018-11-04 00:22] VITALS: BP 118/64; PULSE 72; RESP 16
== END 2018-11-04 00:23 | disposition home or self-care (01) ==
LOC: FTE 22:15
DX: R51 Headache (principal)
CPT/HCPCS: 81003; 81025; 96372; 99284; J1885